=== PATIENT | female | born 2000 | race Caucasian/White ===

== ENCOUNTER 2021-04-13 17:42 | Emergency (ER) | payer BC, OTHER ==
--- NOTE | 2021-04-13 18:46 | EDM.PDOC ---
ED HPI GENERAL MEDICAL PROBLEM - General Chief Complaint: Upper Extremity Injury/Pain Stated Complaint: WRIST INJURY Time Seen by Provider: 04/13/21 17:51 Source of Information: Reports: Patient History Limitations: Reports: No Limitations - History of Present Illness INITIAL COMMENTS - FREE TEXT/NARRATIVE: The patient presents with left wrist pain. 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 One cow tried jumping over another cow and she got her wrist in between. She has no other injuries. She is right handed. Onset: Sudden Duration: Minutes: Location: Reports: Lower Extremity, Right (wrist) Quality: Reports: Sharp Severity: Moderate Improves with: Reports: Rest Worsens with: Reports: Movement Context: Reports: Trauma Associated Symptoms: Reports: No Other Symptoms Left Wrist Pain Score (Numeric/FACES): 6 - Related Data Allergies Allergy/AdvReac Type Severity Reaction Status Date / Time No Known Allergies Allergy Verified 04/13/21 17:52 Home Meds: Home Meds . [No Known Home Meds] 04/13/21 [History] Past Medical History - Past Health History Medical/Surgical History: Denies Medical/Surgical History Social & Family History - Tobacco Use Tobacco Use Status *Q: Never Tobacco User Review of Systems - Review of Systems Review Of Systems: See Below Constitutional: Reports: No Symptoms Eyes: Reports: No Symptoms Ears: Reports: No Symptoms Nose: Reports: No Symptoms Mouth/Throat: Reports: No Symptoms Respiratory: Reports: No Symptoms Cardiovascular: Reports: No Symptoms GI/Abdominal: Reports: No Symptoms Genitourinary: Reports: No Symptoms Musculoskeletal: Reports: Other (Left wrist pain) ED EXAM, GENERAL - Physical Exam Exam: See Below Exam Limited By: No Limitations General Appearance: Alert, No Apparent Distress Ears: Normal External Exam Nose: Normal Inspection Head: Atraumatic, Normocephalic Neck: Normal Inspection Respiratory/Chest: No Respiratory Distress Extremities: Other (Pain upon palpation to the left wrist with good sensation and capillary refill distally.) Course - Vital Signs Last Recorded V/S: Last Vital Signs Temp 97.8 F 04/13/21 17:49 Pulse 90 04/13/21 17:49 Resp 16 04/13/21 17:49 BP 126/74 04/13/21 17:49 Pulse Ox 100 04/13/21 17:49 - Orders/Labs/Meds Orders: Active Orders 24 hr Category Date Time Status Wrist Comp Min 3V Lt [CR] Stat Exams 04/13/21 17:59 Taken - Re-Assessments/Exams Free Text/Narrative Re-Assessment/Exam: 04/13/21 18:44 I ordered an x-ray and it looks good. I will discharge her home with a sprained wrist. Departure - Departure Time of Disposition: 18:45 Disposition: Home, Self-Care 01 Condition: Good Clinical Impression: Left wrist sprain Qualifiers: Encounter type: initial encounter Qualified Code(s): S63.502A - Unspecified sprain of left wrist, initial encounter - Discharge Information *PRESCRIPTION DRUG MONITORING PROGRAM REVIEWED*: Not Applicable *COPY OF PRESCRIPTION DRUG MONITORING REPORT IN PATIENT [facility]: Not Applicable Referrals: PCP,None [Primary Care Provider] - Additional Instructions: Ice your wrist for 15 minutes 3 times per day for 2 days. Take tylenol or motrin for pain. Follow up with your provider within a week if you are not better. Please return if you are worse. Sepsis Event Note (ED) - Evaluation Sepsis Screening Result: No Definite Risk - Focused Exam Vital Signs: Vital Signs Temp Pulse Resp BP Pulse Ox 04/13/21 17:49 97.8 F 90 16 126/74 100 - My Orders Last 24 Hours: My Active Orders 04/13/21 17:59 Wrist Comp Min 3V Lt [CR] Stat - Assessment/Plan Last 24 Hours: My Active Orders 04/13/21 17:59 Wrist Comp Min 3V Lt [CR] Stat
--- NOTE | 2021-04-13 19:10 | CR ---
Left wrist: 4 views of the left wrist were obtained. Comparison: No prior wrist study is available. Joint spaces are maintained. No fracture, dislocation or other bony abnormality is seen. Impression: 1. Nothing acute is seen on left wrist exam. Diagnostic code #1
== END 2021-04-13 18:30 | disposition home or self-care (01) ==
LOC: JD.ED 17:42
DX: S63.502A Unspecified sprain of left wrist, initial encounter (principal); W55.22XA Struck by cow, initial encounter
CPT/HCPCS: 73110-26-LT; 73110-LT; 99283-25

== ENCOUNTER 2023-08-10 05:33 | Inpatient (IN) | payer BC ==
[2023-08-10] MEDS ORDERED: Ondansetron 4 MG/2 ML SDV IVPUSH PRN (07:03)
[2023-08-10] MEDS ORDERED: Sodium Chloride 0.9% 10 ML Syringe FLUSH PRN (07:03)
[2023-08-10] MEDS ORDERED: Lidocaine 1% 50 ML MDV INJECT PRN (07:03)
[2023-08-10] MEDS ORDERED: Nalbuphine HCl 10 MG/ 1ML Amp IVPUSH PRN (07:03)
[2023-08-10] MEDS ORDERED: Oxytocin/Lactated Ringers 30 UNIT/500 ML BAG IV SCH (07:15)
[2023-08-10] MEDS ORDERED: diphenhydrAMINE 50 MG/ML SDV IVPUSH PRN (07:29)
[2023-08-10] MEDS ORDERED: ePHEDrine 50 MG/ML SDV IVPUSH PRN (07:29)
[2023-08-10 07:33] LABS: BASOPHILS PERCENT AUTO 0.3 % (0.0-1.0); EOSINOPHILS ABSOLUTE AUTO 0.1 K/mm3 (0.0-0.4); EOSINOPHILS PERCENT AUTO 0.6 % (0.0-6.0); HEMATOCRIT 32.8 % (37.0-47.0); HEMOGLOBIN 11.1 gm/dl (12.0-16.0); IMMATURE GRAN ABSOLUTE AUTO 0.22 K/mm3 (0.00-0.05); IMMATURE GRAN PERCENT AUTO 1.8 % (0.0-0.4); LYMPHOCYTES ABSOLUTE AUTO 1.5 K/mm3 (1.0-4.8); LYMPHOCYTES PERCENT AUTO 12.3 % (24.0-44.0); MEAN CORPUSCULAR HEMOGLOBIN 30.7 pg (28.0-32.0); MEAN CORPUSCULAR HGB CONC 33.8 g/dl (32.0-36.0); MEAN CORPUSCULAR VOLUME 90.6 fl (83.0-99.0); MEAN PLATELET VOLUME 11.7 fl (9.4-12.3); MONOCYTES ABSOLUTE AUTO 0.9 K/mm3 (0.0-0.8); MONOCYTES PERCENT AUTO 7.4 % (0.0-8.0); NEUTROPHILS ABSOLUTE AUTO 9.3 K/mm3 (1.8-7.7); NEUTROPHILS PERCENT AUTO 77.6 % (41.0-71.0); PLATELET COUNT,PLT 227 K/mm3 (150-400); RED BLOOD CELL COUNT 3.62 M/mm3 (4.10-5.30); WHITE BLOOD CELL COUNT,WBC 12.01 K/mm3 (3.9-11.3)
[2023-08-10] MEDS: Misoprostol 25 MCG (1/4 of 100 MCG) Tab VAG PRN (07:53)
[2023-08-10] MEDS: Sodium Chloride 0.9% 10 ML Syringe FLUSH SCH (11:50)
[2023-08-10] MEDS: Oxytocin/Lactated Ringers 30 UNIT/500 ML BAG IV SCH (20:12)
[2023-08-10] MEDS: Lactated Ringers 1,000 ML IV SCH (20:12)
[2023-08-11] MEDS ORDERED: Lidocaine 1% 10 ML MDV ONE
[2023-08-11] MEDS: Bupivacaine/fentaNYL/NS 100 ML Bag EPIDUR PRN (00:57)
[2023-08-11] MEDS: fentaNYL 100 MCG/2 ML SDV EPIDUR PRN (00:57)
[2023-08-11] MEDS ORDERED: Docusate Sodium 100 MG Cap PO PRN (06:19)
[2023-08-11] MEDS: Ibuprofen 600 MG Tab PO PRN (06:31)
[2023-08-11] MEDS: Witch Hazel Medicated Pads 40/Jar TOP PRN (06:58)
[2023-08-11] MEDS: Benzocaine/Menthol 20%-0.5% Spray 78 GM Cannister TOP PRN (06:58)
[2023-08-11] MEDS: Acetaminophen 325 MG Tab PO PRN (20:45)
== END 2023-08-12 10:07 | disposition home or self-care (01) | DRG 560 ==
LOC: JD.OB 05:33 → OBSVTOIN 08-11 05:33 → JD.OB 08-11 05:54
PROVIDERS: ADMIT Obstetrics & Gynecology; ATTEND Obstetrics & Gynecology
PROC: 10E0XZZ Delivery of Products of Conception, External Approach (ICD-10-PCS; principal; 2023-08-11)
PROC: 10907ZC Drainage of Amniotic Fluid, Therapeutic from Products of Conception, Via Natural or Artificial Opening (ICD-10-PCS; 2023-08-11)
PROC: 3E0R3BZ Introduction of Anesthetic Agent into Spinal Canal, Percutaneous Approach (ICD-10-PCS; 2023-08-11)
PROC: 00HU33Z Insertion of Infusion Device into Spinal Canal, Percutaneous Approach (ICD-10-PCS; 2023-08-11)
DX: O80 Encounter for full-term uncomplicated delivery (principal); Z3A.39 39 weeks gestation of pregnancy; Z37.0 Single live birth
CPT/HCPCS: 36415; 51702; 59025; 59409; 85025; 86592; 86850; 86900; 86901; A9270-GY; C1726; J3010; J3490; J7120; J7999